=== PATIENT | male | born 1955 | race Caucasian/White ===

== ENCOUNTER 2017-11-25 09:30 | Emergency (ER) | payer OTHER ==
[2017-11-25] MEDS ORDERED: Sodium Chloride 0.9% 10 ML Syringe FLUSH PRN (09:52)
--- NOTE | 2017-11-25 10:04 | EDM.PDOC ---
ED HPI GENERAL MEDICAL PROBLEM - General Chief Complaint: Chest Pain Stated Complaint: CHEST PRESSURE AND SOB Time Seen by Provider: 11/25/17 09:51 Source of Information: Reports: Patient, RN Notes Reviewed - History of Present Illness INITIAL COMMENTS - FREE TEXT/NARRATIVE: 8-year-old male with onset of lower anterior chest pressure, tightness that started about a day and a half ago. That continued yesterday and then present again this morning. The pain is worse with deep breathing. The pain does not radiate to shoulder or arm or back. No nausea vomiting or diaphoresis. Does have history of coronary artery disease with recent 4 vessel bypass surgery done about 3 months ago. Has been rehabbing relatively well. He has continued to have some anterior chest wall discomfort types of motion or lifting this now has been more severe yesterday and today. He is not coughing any more than usual. Dominant pain or anything that feels like GE reflux. No fever or chills. 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 Middle Chest Pain Score (Numeric/FACES): 3 - Related Data Allergies Allergy/AdvReac Type Severity Reaction Status Date / Time rosuvastatin [From Crestor] Allergy Rash Verified 11/25/17 09:37 Home Meds: Home Meds Ascorbic Acid [Vitamin C] 250 mg PO DAILY 09/23/17 [History] Aspirin 325 mg PO DAILY 09/23/17 [History] Calcium Carb/D3/Mag AA Chelate [Coral Calcium Capsule] 1 tab PO BID 09/23/17 [ History] Cholecalciferol (Vitamin D3) [Vitamin D3] 400 unit PO DAILY 09/23/17 [History] Cyanocobalamin (Vitamin B12) [Vitamin B12] 1 tab PO DAILY 09/23/17 [History] Flaxseed 4 tbsp PO DAILY 09/23/17 [History] Flaxseed Oil 1,000 mg PO BID 09/23/17 [History] Metoprolol Tartrate 12.5 mg PO BID 09/23/17 [History] Multivitamin [One Daily] 1 each PO DAILY 09/23/17 [History] [place]-3/DHA/Epa/Fish Oil [[place] 3 500 Softgel] 1,000 mg PO DAILY 09/23/17 [ History] Pravastatin [Pravachol] 10 mg PO DAILY 09/23/17 [History] Past Medical History HEENT History: Reports: Impaired Vision Cardiovascular History: Reports: Bypass, High Cholesterol, VA, Stents - Past Surgical History HEENT Surgical History: Reports: Oral Surgery Social & Family History - Family History Family Medical History: Noncontributory Cardiac: Reports: Angina, High Cholesterol, VA, Stent - Tobacco Use Smoking Status *Q: Never Smoker - Caffeine Use Caffeine Use: Reports: Tea - Recreational Drug Use Recreational Drug Use: No ED ROS GENERAL - Review of Systems Review Of Systems: See Below Constitutional: Denies: Fever, Chills, Diaphoresis HEENT: Denies: Sinus Problem, Throat Pain Respiratory: Reports: Pleuritic Chest Pain (Pain with deep breathing primarily lower anterior mid chest). Denies: Shortness of Breath Cardiovascular: Reports: Chest Pain GI/Abdominal: Denies: Abdominal Pain (Lower anterior mid chest without radiation ), Nausea, Vomiting Musculoskeletal: Denies: Shoulder Pain, Arm Pain, Back Pain Skin: Reports: No Symptoms Neurological: Denies: Dizziness, Numbness, Tingling, Trouble Speaking, Weakness ED EXAM, GENERAL - Physical Exam Exam: See Below General Appearance: Alert, No Apparent Distress Eye Exam: Bilateral Eye: PERRL Throat/Mouth: Normal Inspection Head: Atraumatic. No: Facial Swelling Neck: Supple, Full Range of Motion, Other (No JVD). No: Lymphadenopathy (L), Lymphadenopathy (R) Respiratory/Chest: No Respiratory Distress, Lungs Clear, Normal Breath Sounds Cardiovascular: Regular Rate, Rhythm, Other (There is very mild bilateral parasternal tenderness of the chest, midline scar present, has healed well, no unusual swelling) GI/Abdominal: Soft, Non-Tender. No: Guarding Back Exam: No: CVA Tenderness (L), CVA Tenderness (R) Extremities: Normal Inspection, Increased Warmth. No: Pedal Edema, Leg Pain, Redness Neurological: Alert, Oriented, No Motor/Sensory Deficits Skin Exam: Dry, Normal Color EKG INTERPRETATION EKG Date: 11/25/17 Rhythm: NSR [place]: Normal P-Wave: Present QRS: Normal ST-T: Normal Course - Vital Signs Last Recorded V/S: Last Vital Signs Temp 98.2 F 11/25/17 09:43 Pulse 66 11/25/17 09:43 Resp 16 11/25/17 09:43 BP 143/100 H 11/25/17 09:43 Pulse Ox 98 11/25/17 09:43 - Orders/Labs/Meds Orders: Active Orders 24 hr Category Date Time Status EKG 12 Lead [EKG Documentation Completion] [RC] STAT Care 11/25/17 09:53 Active Peripheral IV Care [RC] . DIRECTED Care 11/25/17 09:53 Active Peripheral IV Insertion Adult [OM.PC] Stat Oth 11/25/17 09:53 Ordered Labs: Laboratory Tests 11/25/17 11/25/17 11/25/17 Range/Units 09:40 09:40 09:40 WBC 9.89 H (4.23-9.07) K/mm3 RBC 5.31 (4.63-6.08) M/mm3 Hgb 15.5 (13.7-17.5) gm/L Hct 46.2 (40.1-51.0) % MCV 87.0 (79.0-92.2) fl MCH 29.2 (25.7-32.2) pg MCHC 33.5 (32.2-35.5) g/dl RDW Std Deviation 43.6 (35.1-43.9) fL Plt Count 279 (163-337) K/mm3 MPV 9.9 (9.4-12.3) fl Neut % (Auto) 71.6 H (34.0-67.9) % Lymph % (Auto) 17.3 L (21.8-53.1) % [place] % (Auto) 8.6 (5.3-12.2) % Eos % (Auto) 1.8 (0.8-7.0) Baso % (Auto) 0.6 (0.1-1.2) % Neut # (Auto) 7.08 H (1.78-5.38) K/mm3 Lymph # (Auto) 1.71 (1.32-3.57) K/mm3 [place] # (Auto) 0.85 H (0.30-0.82) K/mm3 Eos # (Auto) 0.18 (0.04-0.54) K/mm3 Baso # (Auto) 0.06 (0.01-0.08) K/mm3 ESR 6 (0-15) mm/hr Sodium 139 (136-145) mEq/L Potassium 4.4 (3.5-5.1) mEq/L Chloride 106 (98-107) mEq/L Carbon Dioxide 27 (21-32) mEq/L Anion Gap 10.4 (5-15) BUN 14 (7-18) mg/dL Creatinine 0.9 (0.7-1.3) mg/dL Est Cr Clr Drug Dosing 84.44 mL/min Estimated GFR (MDRD) > 60 (>60) mL/min BUN/Creatinine Ratio 15.6 (14-18) Glucose 99 (74-106) mg/dL Calcium 9.3 (8.5-10.1) mg/dL Total Bilirubin 0.5 (0.2-1.0) mg/dL AST 54 H (15-37) U/L ALT 62 (16-63) U/L Alkaline Phosphatase 71 (46-116) U/L Troponin I < 0.017 (0.00-0.056) ng/mL Total Protein 7.7 (6.4-8.2) g/dl Albumin 4.2 (3.4-5.0) g/dl Globulin 3.5 gm/dL Albumin/Globulin Ratio 1.2 (1-2) 11/25/17 Range/Units 12:40 WBC (4.23-9.07) K/mm3 RBC (4.63-6.08) M/mm3 Hgb (13.7-17.5) gm/L Hct (40.1-51.0) % MCV (79.0-92.2) fl MCH (25.7-32.2) pg MCHC (32.2-35.5) g/dl RDW Std Deviation (35.1-43.9) fL Plt Count (163-337) K/mm3 MPV (9.4-12.3) fl Neut % (Auto) (34.0-67.9) % Lymph % (Auto) (21.8-53.1) % [place] % (Auto) (5.3-12.2) % Eos % (Auto) (0.8-7.0) Baso % (Auto) (0.1-1.2) % Neut # (Auto) (1.78-5.38) K/mm3 Lymph # (Auto) (1.32-3.57) K/mm3 [place] # (Auto) (0.30-0.82) K/mm3 Eos # (Auto) (0.04-0.54) K/mm3 Baso # (Auto) (0.01-0.08) K/mm3 ESR (0-15) mm/hr Sodium (136-145) mEq/L Potassium (3.5-5.1) mEq/L Chloride (98-107) mEq/L Carbon Dioxide (21-32) mEq/L Anion Gap (5-15) BUN (7-18) mg/dL Creatinine (0.7-1.3) mg/dL Est Cr Clr Drug Dosing mL/min Estimated GFR (MDRD) (>60) mL/min BUN/Creatinine Ratio (14-18) Glucose (74-106) mg/dL Calcium (8.5-10.1) mg/dL Total Bilirubin (0.2-1.0) mg/dL AST (15-37) U/L ALT (16-63) U/L Alkaline Phosphatase (46-116) U/L Troponin I < 0.017 (0.00-0.056) ng/mL Total Protein (6.4-8.2) g/dl Albumin (3.4-5.0) g/dl Globulin gm/dL Albumin/Globulin Ratio (1-2) Meds: Medications Discontinued Medications Generic Name Dose Route Start Last Admin Trade Name [place] PRN Reason Stop Dose Admin Sodium Chloride 10 ml 11/25/17 09:52 11/25/17 09:30 Saline Flush FLUSH 10 ml ASDIRECTED PRN Administration Keep Vein Open - Re-Assessments/Exams Free Text/Narrative Re-Assessment/Exam: 11/25/17 15:16 Initial troponin did come back negative, other labs also relatively normal, did check a sedimentation rate that was normal. We did do a repeat troponin and that did remain normal. On further questioning he states he has been exerting himself a bit more opening valves and that type of thing with his work-related duties this past week. He states he can feel the discomfort in his chest more with certain types of motion. His chest x-ray is normal. He is remained in sinus rhythm, no ectopy. Sats have remained 98-100%, no shortness of breath or respiratory distress. Discharge instructions as documented. 11/25/17 15:17 Departure - Departure Time of Disposition: 13:12 Disposition: Home, Self-Care 01 Condition: Fair Clinical Impression: Atypical chest pain, Chest wall pain Instructions: Nonspecific Chest Pain Referrals: PCP,Unknown [Primary Care Provider] - Forms: ED Department Discharge Additional Instructions: Avoid further lifting or pushing exertion as best you can for the next week or so until chest wall discomfort resolving, you may take Tylenol up to 3 times daily, you may take occasional Advil or ibuprofen if needed for further pain relief, follow-up with your regular medical provider if discomfort not resolving within 5-7 days as expected, he turned to ED as needed as discussed if symptoms worsening in any way. - My Orders Last 24 Hours: My Active Orders 11/25/17 09:53 EKG 12 Lead [EKG Documentation Completion] [RC] STAT Peripheral IV Care [RC] . DIRECTED Peripheral IV Insertion Adult [OM.PC] Stat - Assessment/Plan Last 24 Hours: My Active Orders 11/25/17 09:53 EKG 12 Lead [EKG Documentation Completion] [RC] STAT Peripheral IV Care [RC] . DIRECTED Peripheral IV Insertion Adult [OM.PC] Stat
--- NOTE | 2017-11-25 11:02 | CR ---
Chest: Portable view of the chest is obtained. Comparison: No prior chest x-ray. Heart size is accentuated from portable technique. Mild tortuosity of the thoracic aorta is seen. Sternotomy is noted for prior CABG. Lungs are clear with no acute parenchymal change. Bony structures are grossly intact. Impression: 1. Prior CABG. 2. Nothing acute is seen on portable chest x-ray. Diagnostic code #2
== END 2017-11-25 13:26 | disposition home or self-care (01) ==
LOC: JD.ED 09:30
DX: R07.89 Other chest pain (principal); I25.2 Old myocardial infarction; Z79.82 Long term (current) use of aspirin; Z79.899 Other long term (current) drug therapy; Z95.0 Presence of cardiac pacemaker
CPT/HCPCS: 36415; 71045; 80053; 84484; 85025; 85652; 93005; 99285; J7050; 93010; 99284-25

== ENCOUNTER 2023-03-17 06:00 | Day surgery (SDC) | payer OTHER ==
[~2023-03-17 06:00] MED LIST: Lactated Ringers 1,000 ML IV SCH; Lidocaine 2% 5 ML SDV ONE; Midazolam 1 MG/ML 2 ML SDV ONE; Propofol 200 MG/20 ML SDV ONE; Sodium Chloride 0.9% 10 ML Syringe FLUSH PRN; Sodium Chloride 0.9% 10 ML Syringe FLUSH SCH; ceFAZolin 2 GM Vial ONE; fentaNYL 100 MCG/2 ML SDV ONE
[2023-03-17] MEDS ORDERED: Lidocaine 1% 10 ML MDV ONE (06:26)
[2023-03-17] MEDS ORDERED: Bupivacaine 0.25% 10 ML SDV ONE (06:26)
[2023-03-17] MEDS ORDERED: fentaNYL 100 MCG/2 ML SDV IVPUSH PRN (07:55)
[2023-03-17] MEDS ORDERED: HYDROmorphone 0.5 MG/0.5 ML Syringe IVPUSH PRN (07:55)
[2023-03-17] MEDS ORDERED: Ondansetron 4 MG/2 ML SDV IVPUSH PRN (07:55)
[2023-03-17] MEDS ORDERED: Lactated Ringers 1,000 ML IV SCH (09:00)
== END 2023-03-17 08:40 | disposition home or self-care (01) ==
LOC: JD.SDS 06:00
PROVIDERS: ATTEND Orthopaedic Surgery
DX: M71.341 Other bursal cyst, right hand (principal); M54.50 Low back pain, unspecified; I73.9 Peripheral vascular disease, unspecified; E78.2 Mixed hyperlipidemia; I25.10 Atherosclerotic heart disease of native coronary artery without angina pectoris; Z79.899 Other long term (current) drug therapy; Z88.8 Allergy status to other drugs, medicaments and biological substances
CPT/HCPCS: 26160; J0690; J2250; J2704; J3010; J3490; J7120; 00400